=== PATIENT | male | born 1955 | race Caucasian/White ===

== ENCOUNTER 2016-11-10 06:59 | Observation (INO) | payer OTHER ==
[2016-11-10] MEDS ORDERED: ONDANSETRON 4 MG/2 ML VIAL IVP ONE ×2 (07:08→08:24)
--- NOTE | 2016-11-10 07:21 | EDPHY ---
H & P Time Seen by Provider: 11/10/16 07:19 HPI/ROS: CHIEF COMPLAINT: Nausea, vomiting HISTORY OF PRESENT ILLNESS: This patient is a 60 year old male arriving with his complaining of nausea and vomiting onset yesterday evening, around 13 hours ago. He may have eaten a bad salad at lunchtime, and became ill intermediate through dinner last night. He has had multiple episodes of vomiting since that time. Unable to tolerate oral fluids or food. Associated with mild epigastric discomfort. He denies diarrhea , fever, shortness of breath, chest pain, or other associated symptoms. REVIEW OF SYSTEMS: Constitutional: No fever, no chills Eyes: No visual changes ENT: No sore throat Respiratory: No cough, no shortness of breath Cardiac: No chest pain Genitourinary: No hematuria, no dysuria Musculoskeletal: No leg pain or swelling Skin: No rash Neurological: No headache Psychiatric: No depression Past Medical/Surgical History: CABG Social History: at bedside. Smoking Status: Never smoked Physical Exam: General Appearance: Alert, nontoxic, pleasant Eyes: Pupils equal and round, no conjunctival pallor or injection ENT, Mouth: Mucous membranes moist Neck: Normal inspection Respiratory: Lungs are clear to auscultation Cardiovascular: Regular rate and rhythm Gastrointestinal: Mild epigastric tenderness Neurological: A&O, nonfocal, normal gait Skin: Warm and dry, no rash Extremities: Nontender, no pedal edema Psychiatric: Mood and affect normal Constitutional: Initial Vital Signs Temperature (C) 36.6 C 11/10/16 07:04 Heart Rate 84 11/10/16 07:04 Respiratory Rate 17 11/10/16 07:04 Blood Pressure 149/106 H 11/10/16 07:04 O2 Sat (%) 96 11/10/16 07:04 O2 Delivery Mode Room Air Allergies/Adverse Reactions: No Known Allergies Allergy (Unverified 11/10/16 07:03) Home Medications: Medication Instructions Recorded Albuterol [Proventil Inhaler HFA 1 - 2 puffs IH DAILY PRN 11/10/16 (*)] Aspirin [Aspirin 81mg (*)] 81 mg PO DAILY 11/10/16 Atorvastatin Calcium [Lipitor 40 40 mg PO HS 11/10/16 mg (*)] Losartan Potassium [Cozaar 25 mg 25 mg PO DAILY 11/10/16 (*)] Mefloquine HCl [Lariam 250 mg (*)] 250 mg PO TU 11/10/16 Multivitamins [Multivitamin (*)] 1 each PO DAILY 11/10/16 Ondansetron Odt [Zofran Odt 4 mg 4 mg PO Q4 PRN #6 tab 11/10/16 (*)] Ondansetron Odt [Zofran Odt 4 mg 4 mg PO Q4HRS PRN #10 tab 11/10/16 (*)] Vitamin B Complex [B Complex] 1 each PO DAILY 11/10/16 Medical Decision Making ED Course/Re-evaluation: This patient is a 60 year old male presenting with 13 hour history of nausea and vomiting. Physical exam reveals midepigastric tenderness but it otherwise unremarkable. Plan for labs including CBC, BMP, liver and lipase. Plan to administer 4mg IV Zofran and 1L NS for symptom relief. Labs significant for dehydration, with hypernatremia and low bicarb. 9:30am--still vomiting after Zofran 4mg IV x 2 and Reglan 10mg IV. Will try Phenergan 12.5mg IV. If still vomiting will require admission. Abdomen remains benign. 10:15 The patient continues to vomit despite IV Phenergan. Plan to administer 1mg IV Ativan. Plan to admit for continued vomiting. Abdomen remains benign. I do not feel that imaging is indicated in this patient. The hospitalist service was consulted for admission. Differential Diagnosis: The differential diagnosis for the patient's nausea and vomiting included but was not limited to gastroenteritis, gastritis, appendicitis, and medication side effect. - Data Points Laboratory Results: Laboratory Results 11/10/16 07:24 11/10/16 07:24 11/10/16 11/10/16 07:24 07:24 WBC 10.81 10^3/uL H 10^3/uL (3.80-9.50) RBC 5.83 10^6/uL 10^6/uL (4.40-6.38) Hgb 18.7 g/dL H g/dL (13.7-17.5) Hct 54.5 % H % (40.0-51.0) MCV 93.5 fL fL (81.5-99.8) MCH 32.1 pg pg (27.9-34.1) MCHC 34.3 g/dL g/dL (32.4-36.7) RDW 13.4 % % (11.5-15.2) Plt Count 205 10^3/uL 10^3/uL (150-400) MPV 9.6 fL fL (8.7-11.7) Neut % (Auto) 79.0 % H % (39.3-74.2) Lymph % (Auto) 13.3 % L % (15.0-45.0) [place] % (Auto) 6.2 % % (4.5-13.0) Eos % (Auto) 0.6 % % (0.6-7.6) Baso % (Auto) 0.5 % % (0.3-1.7) Nucleat RBC Rel Count 0.0 % % (0.0-0.2) Absolute Neuts (auto) 8.54 10^3/uL H 10^3/uL (1.70-6.50) Absolute Lymphs (auto) 1.44 10^3/uL 10^3/uL (1.00-3.00) Absolute Monos (auto) 0.67 10^3/uL 10^3/uL (0.30-0.80) Absolute Eos (auto) 0.07 10^3/uL 10^3/uL (0.03-0.40) Absolute Basos (auto) 0.05 10^3/uL 10^3/uL (0.02-0.10) Absolute Nucleated RBC 0.00 10^3/uL 10^3/uL (0-0.01) Immature Gran % 0.4 % % (0.0-1.1) Immature Gran # 0.04 10^3/uL 10^3/uL (0.00-0.10) Sodium 150 mEq/L H mEq/L (134-144) Potassium 4.3 mEq/L mEq/L (3.5-5.2) Chloride 109 mEq/L mEq/L (97-110) Carbon Dioxide 21 mEq/l L mEq/l (22-31) Anion Gap 20 mEq/L H mEq/L (8-16) BUN 20 mg/dL mg/dL (7-23) Creatinine 1.1 mg/dL mg/dL (0.7-1.3) Estimated GFR > 60 Glucose 118 mg/dL H mg/dL (70-100) Calcium 10.5 mg/dL H mg/dL (8.5-10.4) Total Bilirubin 1.3 mg/dL mg/dL (0.1-1.4) Conjugated Bilirubin 0.3 mg/dL mg/dL (0.0-0.5) Unconjugated Bilirubin 1.0 mg/dL mg/dL (0.0-1.1) AST 42 IU/L IU/L (17-59) ALT 55 IU/L IU/L (21-72) Alkaline Phosphatase 76 IU/L IU/L (38-126) Total Protein 9.5 g/dL H g/dL (6.3-8.2) Albumin 5.3 g/dL H g/dL (3.5-5.0) Lipase 120.0 IU/L IU/L (23-300) Medications Given: Discontinued Medications Sodium Chloride (Ns) 1,000 mls @ 0 mls/hr IV ONCE ONE; Wide Open PRN Reason: Protocol Stop: 11/10/16 07:27 Last Admin: 11/10/16 07:56 Dose: 1,000 mls Sodium Chloride (Ns) 1,000 mls @ 0 mls/hr IV ONCE ONE PRN Reason: Wide Open Stop: 11/10/16 09:43 Last Admin: 11/10/16 09:43 Dose: 1,000 mls Lorazepam (Ativan Injection) 1 mg IVP EDNOW ONE Stop: 11/10/16 10:15 Last Admin: 11/10/16 10:34 Dose: 1 mg Metoclopramide HCl (Reglan Injection) 10 mg IVP EDNOW ONE Stop: 11/10/16 07:58 Last Admin: 11/10/16 07:58 Dose: 10 mg Ondansetron HCl (Zofran) 4 mg IVP EDNOW ONE Stop: 11/10/16 07:09 Last Admin: 11/10/16 07:08 Dose: 4 mg Ondansetron HCl (Zofran) 4 mg IVP EDNOW ONE Stop: 11/10/16 08:25 Last Admin: 11/10/16 08:32 Dose: 4 mg Promethazine HCl (Phenergan) 12.5 mg IVP EDNOW ONE Stop: 11/10/16 09:36 Last Admin: 11/10/16 09:42 Dose: 12.5 mg Departure - Departure Disposition: [facility] Inpatient Acute Clinical Impression: Vomiting Qualifiers: Vomiting type: unspecified Vomiting Intractability: intractable Nausea presence : with nausea Qualified Code(s): R11.2 - Nausea with vomiting, unspecified Condition: Good Report Scribed for: Lizabeth Duncan Report Scribed by: Verona Welsh Date of Report: 11/10/16 Time of Report: 07:37 Physician Review and Approval Statement: 11/10/16 07:37 Portions of this note were transcribed by a medical record assistant. I personally performed a history, physical exam, medical decision making, and confirmed accuracy of information the transcribed note.
[2016-11-10] MEDS ORDERED: NS 1,000 ML IV ONE ×2 (07:26→09:42)
[2016-11-10 07:30] LABS: % IMMATURE GRANULYOCYTES 0.4 % (0.0-1.1); ABSOLUTE IMMATURE GRANULOCYTES 0.04 10^3/uL (0.00-0.10); ADD DIFF? NO; ADD MORPH? NO; ADD SCAN? NO; ATYPICAL LYMPHOCYTE FLAG 0 (0-99); FRAGMENT RBC FLAG 0 (0-99); HEMATOCRIT 54.5 % (40.0-51.0); HEMOGLOBIN 18.7 g/dL (13.7-17.5); LEFT SHIFT FLG 0 (0-99); LIPEMIA HEMOLYSIS FLAG 90 (0-99); MEAN CELL HEMOGLOBIN 32.1 pg (27.9-34.1); MEAN CELL HEMOGLOBIN CONCENTR. 34.3 g/dL (32.4-36.7); MEAN CELL VOLUME 93.5 fL (81.5-99.8); MEAN PLATELET VOLUME 9.6 fL (8.7-11.7); PLATELET CLUMPS FLAG 10 (0-99); PLATELET COUNT 205 10^3/uL (150-400); RED BLOOD CELL COUNT 5.83 10^6/uL (4.40-6.38); RED CELL DISTRIBUTION WIDTH 13.4 % (11.5-15.2)
[2016-11-10 07:42] LABS: ALANINE AMINOTRANSFERASE 55 IU/L (21-72); ALBUMIN 5.3 g/dL (3.5-5.0); ALKALINE PHOSPHATASE 76 IU/L (38-126); ANION GAP 20 mEq/L (8-16); ASPARTATE AMINOTRANSFERASE 42 IU/L (17-59); BILIRUBIN,TOTAL 1.3 mg/dL (0.1-1.4); BILIRUBIN-CONJUGATED 0.3 mg/dL (0.0-0.5); CALCIUM 10.5 mg/dL (8.5-10.4); CARBON DIOXIDE 21 mEq/l (22-31); CHLORIDE 109 mEq/L (97-110); CREATININE 1.1 mg/dL (0.7-1.3); GLOMERULAR FILTRATION RATE > 60; GLUCOSE 118 mg/dL (70-100); POTASSIUM 4.3 mEq/L (3.5-5.2); SODIUM 150 mEq/L (134-144); TOTAL PROTEIN 9.5 g/dL (6.3-8.2)
[2016-11-10] MEDS ORDERED: METOCLOPRAMIDE 10 MG/2 ML VIAL ONE (07:48)
[2016-11-10] MEDS ORDERED: METOCLOPRAMIDE 10 MG/2 ML VIAL IVP ONE (07:57)
[2016-11-10] MEDS ORDERED: PROMETHAZINE HCL 25 MG/ML INJ IVP ONE (09:35)
[2016-11-10] MEDS ORDERED: LORazepam 2 MG/ML INJ IVP ONE (10:14)
--- NOTE | 2016-11-10 10:46 | CPEKG ---
Heart Rate: 77 RR Interval: 779 P-R Interval: 140 QRSD Interval: 86 QT Interval: 452 QTC Interval: 512 P [place]: 64 QRS [place]: 39 T Wave [place]: 208 EKG Severity - ABNORMAL ECG - EKG Impression: SINUS RHYTHM EKG Impression: VENTRICULAR PREMATURE COMPLEX EKG Impression: LEFT ATRIAL ABNORMALITY EKG Impression: NONSPECIFIC T ABNORMALITIES, DIFFUSE LEADS EKG Impression: PROLONGED QT INTERVAL Electronically Signed By: Lizabeth Duncan 10-Nov-2016 15:11:28
[2016-11-10 12:06] VITALS: RESP 16
[2016-11-10] MEDS ORDERED: LORazepam 2 MG/ML INJ IVP PRN (13:11)
[2016-11-10] MEDS ORDERED: ONDANSETRON DISINTEGRATING 4 MG TAB PO PRN (13:11)
[2016-11-10] MEDS ORDERED: oxyCODONE IR 5 MG TAB PO PRN (13:11)
[2016-11-10] MEDS ORDERED: ACETAMINOPHEN 325 MG TAB PO PRN (13:11)
[2016-11-10] MEDS ORDERED: PROMETHAZINE HCL 25 MG/ML INJ IVP PRN (13:11)
[2016-11-10] MEDS ORDERED: ONDANSETRON 4 MG/2 ML VIAL IVP PRN (13:11)
[2016-11-10] MEDS ORDERED: ALBUTEROL 60 PUFFS/8 GM MDI IH PRN (13:13)
[2016-11-10] MEDS ORDERED: NS 1,000 ML IV SCH (13:15)
--- NOTE | 2016-11-10 13:49 | PDGENHP ---
History and Physical - Chief Complaint nausea/vomiting - History of Present Illness 60 yo M with PMH of CAD presenting with n/v since last night. He notes he ate an old [employer] salad and also ate at a buffet and thinks he may have eaten something bad. Prior to yesterday he was feeling quite well without any health issues. He notes that since receiving ativan he has been a bit somnolent but his nausea has completely resolved. He has not had diarrhea, no fever or chills , no chest pain or sob. No one else has been sick. He has a trip to [place] planned and they are leaving tomorrow, he has been on malaria ppx for this trip. History Information - Allergies/Home Medication List Allergies/Adverse Reactions: No Known Allergies Allergy (Unverified 11/10/16 07:03) Home Medications: Albuterol [Proventil Inhaler HFA (*)] 1 - 2 puffs IH DAILY PRN 11/10/16 [Last Taken Unknown] Aspirin [Aspirin 81mg (*)] 81 mg PO DAILY 11/10/16 [Last Taken Unknown] Atorvastatin Calcium [Lipitor 40 mg (*)] 40 mg PO HS 11/10/16 [Last Taken ] Losartan Potassium [Cozaar 25 mg (*)] 25 mg PO DAILY 11/10/16 [Last Taken ] Mefloquine HCl [Lariam 250 mg (*)] 250 mg PO TU 11/10/16 [Last Taken 11/04/16] Multivitamins [Multivitamin (*)] 1 each PO DAILY 11/10/16 [Last Taken Unknown] Vitamin B Complex [B Complex] 1 each PO DAILY 11/10/16 [Last Taken Unknown] I have personally reviewed and updated: family history, medical history, social history, surgical history - Past Medical History coronary artery disease - Surgical History Reports: coronary bypass surgery - Family History Positive for: non-pertinent - Social History Smoking Status: Never smoked Alcohol Use: Occasionally Drug Use: None Additional social history: , walks 2 miles every day, works in car insurance Review of Systems ROS: 10pt was reviewed & negative except for what was stated in HPI & below Physical Exam Temp Pulse Resp BP Pulse Ox 36.8 C 62 16 118/69 91 L 11/10/16 12:04 11/10/16 12:04 11/10/16 12:04 11/10/16 12:04 11/10/16 12:04 O2 (L/minute) 2 Constitutional: no apparent distress, appears nourished Eyes: PERRL, anicteric sclera Ears, Nose, Mouth, Throat: moist mucous membranes, hearing normal Cardiovascular: regular rate and rhythym, no murmur, rub, or gallop, No edema Respiratory: no respiratory distress, no rales or rhonchi Gastrointestinal: normoactive bowel sounds, soft, non-tender abdomen, No guarding, No rebound, No distension Genitourinary: no bladder tenderness Skin: warm, normal color Musculoskeletal: No asymmetric calves Neurologic: AAOx3 Psychiatric: interacting appropriately, not anxious, not encephalopathic Lab Data & Imaging Review 11/10/16 07:24 11/10/16 07:24 WBC 10.81 10^3/uL (3.80-9.50) H 11/10/16 07:24 RBC 5.83 10^6/uL (4.40-6.38) 11/10/16 07:24 Hgb 18.7 g/dL (13.7-17.5) H 11/10/16 07:24 Hct 54.5 % (40.0-51.0) H 11/10/16 07:24 MCV 93.5 fL (81.5-99.8) 11/10/16 07:24 MCH 32.1 pg (27.9-34.1) 11/10/16 07:24 MCHC 34.3 g/dL (32.4-36.7) 11/10/16 07:24 RDW 13.4 % (11.5-15.2) 11/10/16 07:24 Plt Count 205 10^3/uL (150-400) 11/10/16 07:24 MPV 9.6 fL (8.7-11.7) 11/10/16 07:24 Neut % (Auto) 79.0 % (39.3-74.2) H 11/10/16 07:24 Lymph % (Auto) 13.3 % (15.0-45.0) L 11/10/16 07:24 [place] % (Auto) 6.2 % (4.5-13.0) 11/10/16 07:24 Eos % (Auto) 0.6 % (0.6-7.6) 11/10/16 07:24 Baso % (Auto) 0.5 % (0.3-1.7) 11/10/16 07:24 Nucleat RBC Rel Count 0.0 % (0.0-0.2) 11/10/16 07:24 Absolute Neuts (auto) 8.54 10^3/uL (1.70-6.50) H 11/10/16 07:24 Absolute Lymphs (auto) 1.44 10^3/uL (1.00-3.00) 11/10/16 07:24 Absolute Monos (auto) 0.67 10^3/uL (0.30-0.80) 11/10/16 07:24 Absolute Eos (auto) 0.07 10^3/uL (0.03-0.40) 11/10/16 07:24 Absolute Basos (auto) 0.05 10^3/uL (0.02-0.10) 11/10/16 07:24 Absolute Nucleated RBC 0.00 10^3/uL (0-0.01) 11/10/16 07:24 Immature Gran % 0.4 % (0.0-1.1) 11/10/16 07:24 Immature Gran # 0.04 10^3/uL (0.00-0.10) 11/10/16 07:24 Sodium 150 mEq/L (134-144) H 11/10/16 07:24 Potassium 4.3 mEq/L (3.5-5.2) 11/10/16 07:24 Chloride 109 mEq/L (97-110) 11/10/16 07:24 Carbon Dioxide 21 mEq/l (22-31) L 11/10/16 07:24 Anion Gap 20 mEq/L (8-16) H 11/10/16 07:24 BUN 20 mg/dL (7-23) 11/10/16 07:24 Creatinine 1.1 mg/dL (0.7-1.3) 11/10/16 07:24 Estimated GFR > 60 11/10/16 07:24 Glucose 118 mg/dL (70-100) H 11/10/16 07:24 Calcium 10.5 mg/dL (8.5-10.4) H 11/10/16 07:24 Total Bilirubin 1.3 mg/dL (0.1-1.4) 11/10/16 07:24 Conjugated Bilirubin 0.3 mg/dL (0.0-0.5) 11/10/16 07:24 Unconjugated Bilirubin 1.0 mg/dL (0.0-1.1) 11/10/16 07:24 AST 42 IU/L (17-59) 11/10/16 07:24 ALT 55 IU/L (21-72) 11/10/16 07:24 Alkaline Phosphatase 76 IU/L (38-126) 11/10/16 07:24 Total Protein 9.5 g/dL (6.3-8.2) H 11/10/16 07:24 Albumin 5.3 g/dL (3.5-5.0) H 11/10/16 07:24 Lipase 120.0 IU/L (23-300) 11/10/16 07:24 Assessment & Plan Assessment: Vomiting (Acute) 60 yo M with abrupt onset of persisent n/v thought to be 2/2 food borne enteritis # enteritis: suspect viral, food borne enteritis. Sxs have resolved currently but were present for approximately 14 hours prior to that. Will advance diet and monitor for sxs resolution. If able to tolerate eating w/o issues will dc home later this afternoon. # hypernatremia: in setting of prolonged n/v and e/o volume depletion on exam, is s/p 3 L ns and this has likely corrected. No need for f/u labs so long as sxs continue to improve # leukocytosis: suspect stress response, only mildly elevated, no other sirs criteria # polycythemia: 2/2 volume depletion # dispo: observation status, likely dc in coming hours if able to eat without issues Patient new to my care. Old records reviewed and summarized as above. Care plan reviewed with ER doctor.
[2016-11-10 15:26] VITALS: BP 133/50; PULSE 67; TEMP 98.6; O2SAT 96
--- NOTE | 2016-11-10 15:37 | PDDCSUM ---
Discharge Summary Discharge Summary: Dates of service: 11/10/16 Discharge dx: # acute viral enteritis # hypernatremia # leukocytosis # polycythemia # volume depletion Consultations/procedures: none Hospital course: 60 yo M admitted with 12 hours of n/v, resolved shortly after arrival to floor # enteritis: suspect viral, food borne enteritis. N/v resolved shortly after leaving ER, able to eat without any recurrence of sxs. Given short course of zofran and dc home. # hypernatremia: in setting of prolonged n/v and e/o volume depletion on exam, is s/p 3 L ns and this has likely corrected. Has been normal in the past and do not believe this requires routine f/u testing in the absence of recurrent sxs # leukocytosis: suspect stress response, only mildly elevated, no other sirs criteria # polycythemia: 2/2 volume depletion, previously normal, s/p 3L of ns # volume depletion: as above, hd stable, given saline dc home f/u with pcp
[2016-11-10] MEDS ORDERED: ATORVASTATIN CALCIUM 40 MG TAB PO SCH (21:00)
[2016-11-11] MEDS ORDERED: LOSARTAN POTASSIUM 25 MG TAB PO SCH (09:00)
[2016-11-11] MEDS ORDERED: ASPIRIN 81 MG CHEWABLE TAB PO SCH (09:00)
[2016-11-11] MEDS ORDERED: VITAMIN B COMPLEX 1 EA CAP/TAB PO SCH (09:00)
[2016-11-11] MEDS ORDERED: ENOXAPARIN 40 MG/0.4 ML SYR SC SCH (09:00)
[2016-11-11] MEDS ORDERED: MULTIVITAMINS 1 EACH TAB PO SCH (09:00)
[2016-11-11] MEDS ORDERED: [UNRECOGNIZED DRUG - OTHER] PO SCH (13:13)
== END 2016-11-10 16:25 | disposition home or self-care (01) ==
LOC: F3E 11:58
PROVIDERS: ADMIT Internal Medicine; ATTEND Internal Medicine
DX: A08.8 Other specified intestinal infections (principal); E87.0 Hyperosmolality and hypernatremia; E86.9 Volume depletion, unspecified; I25.10 Atherosclerotic heart disease of native coronary artery without angina pectoris; Z95.1 Presence of aortocoronary bypass graft
CPT/HCPCS: 93005; G0378; 96374; J2060; J2405; J2550; J2765